=== PATIENT | female | born 2000 | race African-American/Black ===

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

== ENCOUNTER 2022-01-16 09:23 | Emergency (ER) | payer OTHER ==
[~2022-01-16] VITALS: Ht 160 cm; Wt 81.6 kg
[2022-01-16 10:04] LABS: BILIRUBIN Negative (Negative); BLOOD Negative (Negative); CLARITY Cloudy (Clear); COLOR Yellow (Yellow); GLUCOSE Negative (Negative); KETONE Trace (Negative); LEUKO ESTERASE Trace (Negative); NITRITE Negative (Negative); SPECIFIC GRAVITY >= 1.030 (1.001-1.030)
[2022-01-16 10:34] LABS: EPITHELIAL CELLS TNTC; MUCOUS 1+
[2022-01-18] MEDS ORDERED: SEPTDS PO (17:06)
== END 2022-01-16 11:58 | disposition home or self-care (01) ==
LOC: ED 09:23
PROVIDERS: Internal Medicine
DX: A64 Unspecified sexually transmitted disease (principal)

== ENCOUNTER 2022-06-04 12:57 | Emergency (ER) | payer OTHER ==
[~2022-06-04] VITALS: Ht 160 cm; Wt 72.6 kg
[~2022-06-04 12:57] MED LIST changes: +SEPTDS PO
[2022-06-04] MEDS ORDERED: PROVENTIL HFA6.7 GM INH (13:46)
[2022-06-04] MEDS ORDERED: HYDROXYZINE PAM25 M1 PO (14:29)
== END 2022-06-04 14:31 | disposition home or self-care (01) ==
LOC: ED 12:57
DX: F41.0 Panic disorder [episodic paroxysmal anxiety] (principal); J45.901 Unspecified asthma with (acute) exacerbation

== ENCOUNTER 2023-05-31 14:54 | Emergency (ER) | payer OTHER ==
[~2023-05-31] VITALS: Wt 77.1 kg
[~2023-05-31 14:54] MED LIST changes: +HYDROXYZINE PAM25 M1 PO
[2023-05-31] MEDS ORDERED: PROVENTIL HFA6.7 GM INH (17:03)
[2023-05-31] MEDS ORDERED: MEDROL DOSEPAK4 MG PO (17:36)
== END 2023-05-31 18:02 | disposition home or self-care (01) ==
LOC: ED 14:54
DX: J45.901 Unspecified asthma with (acute) exacerbation (principal); F41.9 Anxiety disorder, unspecified; Z20.822 Contact with and (suspected) exposure to COVID-19

== ENCOUNTER 2023-06-17 00:15 | Emergency (ER) | payer OTHER ==
[~2023-06-17] VITALS: Ht 160 cm; Wt 74.8 kg
[~2023-06-17 00:15] MED LIST changes: +MEDROL DOSEPAK4 MG PO
[2023-06-17 00:45] LABS: BASO % 0.5 % (0.0-1.0); EOS # 0.4 10*3/uL (0.0-0.4); EOS % 4.6 % (1.0-4.0); HEMATOCRIT 37.7 % (37.0-47.0); LYMPH # 2.9 10*3/uL (1.3-4.4); LYMPH % 35.7 % (27.0-41.0); MEAN CELL VOLUME 78.4 fl (81.0-99.0); MEAN CORPUSCULAR HGB 24.9 pg (27.0-31.0); MEAN CORPUSCULAR HGB CONC 31.8 g/dl (33.0-37.0); MEAN PLATELET VOLUME 10.7 fl (9.6-12.3); MONO # 0.6 10*3/uL (0.1-1.0); MONO % 6.9 % (3.0-9.0); NEUT # 4.3 10*3/uL (2.3-7.9); NEUT % 52.1 % (47.0-73.0); PLATELET COUNT AUTOMATED 385 10*3/uL (130-400); RED BLOOD COUNT 4.81 10*6/uL (4.10-5.10); RED CELL DISTRI WIDTH 15.7 % (0-14.5); WHITE BLOOD COUNT 8.2 10*3/uL (4.8-10.8)
[2023-06-17 00:56] LABS: ACT PARTIAL THROMBO TIME 24.5 SECONDS (20.0-32.1)
[2023-06-17 01:09] LABS: ALKALINE PHOSPHATASE 72 U/L (46-116); BETA-HCG, QUANT < 3.0 mIU/mL (3-10); BUN 8 mg/dl (9-23); CHLORIDE 108 mmol/L (98-107); ETHYL ALCOHOL 102.6 mg/dl (<3); LIPASE 38 U/L (12-53); POTASSIUM 3.4 mmol/L (3.4-5.1); SGPT/ALT 10 U/L (5-49); TOTAL PROTEIN 7.3 gm/dL (6.0-8.0)
[2023-06-17 01:14] LABS: BILIRUBIN Negative (Negative); BLOOD Trace-Lysed (Negative); CLARITY Turbid (Clear); COLOR Yellow (Yellow); GLUCOSE Trace (Negative); KETONE 1+ (Negative); LEUKO ESTERASE Trace (Negative); NITRITE Negative (Negative); PH 6.5 (4.5-8.0); SPECIFIC GRAVITY >= 1.030 (1.001-1.030)
[2023-06-17 01:22] LABS: URINE AMPHETAMINES Negative (1000ng/ml); URINE BARBITURATES Negative (200ng/ml); URINE BENZODIAZEPINES Negative (200ng/ml); URINE CANNABINOIDS (THC) Positive (50ng/ml); URINE COCAINE Negative (300ng/ml); URINE METHADONE Negative (300ng/ml); URINE OPIATES Negative (300ng/ml); URINE PHENCYCLIDINE Negative (25ng/ml)
[2023-06-17 01:31] LABS: BACTERIA 2+; RBC 21-30 rbc/hpf (0-2); WBC 31-40 wbc/hpf (0-5)
[2023-06-17 01:32] LABS: EPITHELIAL CELLS 41-50
[2023-06-17] MEDS ORDERED: CIPRO500 MG PO (02:26)
== END 2023-06-17 02:35 | disposition home or self-care (01) ==
LOC: ED 00:15
PROVIDERS: Internal Medicine
DX: R55 Syncope and collapse (principal); N39.0 Urinary tract infection, site not specified; R10.2 Pelvic and perineal pain; F10.129 Alcohol abuse with intoxication, unspecified; F12.129 Cannabis abuse with intoxication, unspecified; J45.909 Unspecified asthma, uncomplicated; F41.9 Anxiety disorder, unspecified; Z79.899 Other long term (current) drug therapy; Y90.5 Blood alcohol level of 100-119 mg/100 ml

== ENCOUNTER 2023-10-17 02:05 | Emergency (ER) | payer OTHER ==
[~2023-10-17] VITALS: Ht 160 cm; Wt 85.7 kg
[~2023-10-17 02:05] MED LIST changes: +CIPRO500 MG PO
[2023-10-17 02:44] LABS: BILIRUBIN Negative (Negative); BLOOD Negative (Negative); CLARITY Cloudy (Clear); COLOR Yellow (Yellow); GLUCOSE Negative (Negative); KETONE Trace (Negative); LEUKO ESTERASE Trace (Negative); NITRITE Negative (Negative); SPECIFIC GRAVITY >= 1.030 (1.001-1.030)
[2023-10-17 02:51] LABS: BACTERIA 1+; MUCOUS 1+; RBC 0-2 rbc/hpf (0-2)
== END 2023-10-17 04:13 | disposition home or self-care (01) ==
LOC: ED 02:05
PROVIDERS: Internal Medicine
DX: O26.851 Spotting complicating pregnancy, first trimester (principal); J45.909 Unspecified asthma, uncomplicated; F41.9 Anxiety disorder, unspecified; Z3A.11 11 weeks gestation of pregnancy